=== PATIENT | female | born 1955 | race Caucasian/White ===

== ENCOUNTER → 2020-11-16 11:02 | Outpatient (CLI) | payer OTHER | END | disposition home or self-care (01) | LOC: RAD 11:02 | PROVIDERS: ATTEND Physical Medicine & Rehabilitation | DX: M54.5 Low back pain (principal) ==

== ENCOUNTER 2022-01-21 12:24 | Outpatient (CLI) | payer OTHER | END 2022-01-21 12:30 | disposition home or self-care (01) | LOC: RAD 12:24 | PROVIDERS: ATTEND Family Medicine | DX: M54.6 Pain in thoracic spine (principal) ==

== ENCOUNTER → 2022-01-24 | Outpatient (CLI) | payer OTHER | END | disposition home or self-care (01) | LOC: SONOGRAMA 11:24 | PROVIDERS: ATTEND Family Medicine | DX: R31.29 Other microscopic hematuria (principal) ==

== ENCOUNTER 2022-02-17 10:58 | Outpatient (CLI) | payer OTHER | END 2022-02-17 11:02 | disposition home or self-care (01) | LOC: SONOGRAMA 10:58 | PROVIDERS: ATTEND Family Medicine | DX: R10.12 Left upper quadrant pain (principal) ==

== ENCOUNTER 2023-08-12 12:36 | Outpatient (CLI) | payer OTHER | END 2023-08-12 12:41 | disposition home or self-care (01) | LOC: RAD 12:36 | PROVIDERS: ATTEND Physical Medicine & Rehabilitation | DX: M79.671 Pain in right foot (principal); M77.41 Metatarsalgia, right foot; M77.42 Metatarsalgia, left foot ==

== ENCOUNTER 2025-02-23 15:38 | Outpatient (CLI) | payer OTHER | END 2025-02-23 15:44 | disposition home or self-care (01) | LOC: RAD 15:38 | DX: M54.6 Pain in thoracic spine (principal); M25.562 Pain in left knee ==

== ENCOUNTER 2025-03-14 09:56 | Outpatient (CLI) | payer OTHER | END 2025-03-14 09:58 | disposition home or self-care (01) | LOC: SONOGRAMA 09:56 | PROVIDERS: ATTEND Physical Medicine & Rehabilitation | DX: M25.562 Pain in left knee (principal); M17.12 Unilateral primary osteoarthritis, left knee ==

== ENCOUNTER 2025-03-29 10:25 | Outpatient (CLI) | payer OTHER | END 2025-03-29 10:30 | disposition home or self-care (01) | LOC: MRI 10:25 | PROVIDERS: ATTEND Physical Medicine & Rehabilitation | DX: M23.262 Derangement of other lateral meniscus due to old tear or injury, left knee (principal) | CPT/HCPCS: 73721 ==